=== PATIENT | male | born 1965 | race Caucasian/White ===

== ENCOUNTER 2016-11-20 11:35 | Inpatient (IN) | payer MEDICAID ==
[~2016-11-20] VITALS: Ht 177.8 cm; Wt 93.4 kg
[2016-11-20 11:49] VITALS: BP 144/108; PULSE 76; RESP 16; TEMP 98; O2SAT 96
--- NOTE | 2016-11-20 11:55 | NUR ---
C/O 05/21 RLQ abd pain, mild nausea, had some diarrhea S/T laxative use, now has formed stool. Patient to ER bed 1 to gown for evaluation. Side rails up. Report given to Damon GREENBERG.
--- NOTE | 2016-11-20 12:02 | NUR ---
ER Dr. Yates at bedside examining patient.
[2016-11-20] MEDS ORDERED: NACL 0.9% 1,000 ML IV ONE (12:07)
--- NOTE | 2016-11-20 12:10 | NUR ---
Pt brought by self, A&Ox4, pt c/o RLQ abd pain 05/21, denies vomiting, afebrile, skin pink and warm,c ap refill <3, VSS.
[2016-11-20] MEDS ORDERED: MORPHINE 4 MG/ML INJ. SYRINGE IM ONE (12:15)
[2016-11-20] MEDS ORDERED: ONDANSETRON HCL 4 MG/2 ML VIAL IVP ONE (12:15)
[2016-11-20 12:29] LABS: BASOPHILS # (AUTO) 0.1 K/uL (0.0-0.2); EOSINOPHILS # (AUTO) 0.5 K/uL (0.0-0.4); HEMATOCRIT 44.8 % (36-54); HEMOGLOBIN 14.7 g/dL (14.0-18.0); LYMPHOCYTES # (AUTO) 2.3 K/uL (1.0-5.5); MEAN CORPUSCULAR HEMOGLOBIN 31 pg (27-31); MEAN CORPUSCULAR HGB CONC 33 % (32-36); MEAN CORPUSCULAR VOLUME 94 fL (79.0-98.0); MONOCYTES # (AUTO) 0.7 K/uL (0.0-1.0); MONOCYTES % (AUTO) 8.7 % (1.7-9.3); NEUTROPHILS # (AUTO) 4.4 K/uL (1.8-7.7); NEUTROPHILS % (AUTO) 55.3 % (40.0-70.0); PLATELET COUNT (AUTO) 256 K/uL (130-430); RED BLOOD CELL COUNT(AUTO) 4.79 MIL/uL (4.2-6.2); RED CELL DISTRIBUTION WIDTH 11.8 % (9.0-15.0)
[2016-11-20 12:32] LABS: BILIRUBIN,URINE NEGATIVE (NEGATIVE); BLOOD, URINE 2+ (NEGATIVE); CLARITY/URINE CLEAR (CLEAR); COLOR,URINE YELLOW (YELLOW); GLUCOSE,URINE NEGATIVE (NEGATIVE); KETONES,URINE NEGATIVE (NEGATIVE); LEUKOCYTE ESTERASE ,URINE NEGATIVE (NEGATIVE); NITRITE, URINE NEGATIVE (NEGATIVE); PROTEIN URINE NEGATIVE (NEGATIVE); UROBILINOGEN,URINE 0.2 (0.2-1.0)
[2016-11-20 12:50] LABS: PROTHROMBIN TIME 11.2 SECS (9.5-12.5)
[2016-11-20 12:51] LABS: CALCIUM 9.2 mg/dL (8.4-11.0); CREATININE 1.18 mg/dL (0.55-1.30); POTASSIUM 4.2 mmol/L (3.5-5.1)
[2016-11-20 12:54] LABS: BACTERIA,URINE FEW /HPF (None Seen); MUCUS,URINE 2+ /LPF (None Seen); WBC,URINE 0-3 /HPF (0-3)
[2016-11-20 12:55] LABS: ALBUMIN 4.2 g/dL (3.4-4.8); TOTAL BILIRUBIN 0.4 mg/dL (0.0-1.0); TOTAL PROTEIN, SERUM 7.7 g/dL (6.4-8.3)
[2016-11-20] MEDS ORDERED: KETOROLAC TROMETHAMINE 30 MG VIAL IVP ONE (13:15)
[2016-11-20] MEDS ORDERED: HYDROmorphone 1 MG INJ. 1 MG/ML AMPUL IVP ONE ×2 (13:30→14:45)
--- NOTE | 2016-11-20 13:39 | NUR ---
Medicated with Dilaudid 1mg IVP per Dr. Yates's order for 06/21 right flank pain on cardiac/SaO2 monitor with high alarms, teach back fall precautions provided, bed low brake on primary nurse notified
--- NOTE | 2016-11-20 13:50 | NUR ---
Patient out to radiology.
--- NOTE | 2016-11-20 13:51 | NUR ---
ADMISSION: The patient, LOLIS MENDOZA, 50 y/o, M admitted by , was given written information regarding hospital policies, unit procedures and contact persons.
--- NOTE | 2016-11-20 13:57 | NUR ---
Patient will be admitted to care of Dr Morris . Admitted to Medsurg unit. Will go to room 126B. . Summary report printed. Report given to Leonora Villarreal .
[2016-11-20 13:59] VITALS: BP 148/78; PULSE 62; RESP 17; TEMP 97.8; O2SAT 98
[2016-11-20] MEDS ORDERED: FLU VACC QS 2016-17(36MOS+)/PF 0.5 ML/SYR SYRINGE I.M. PRN ×2 (14:15→14:30)
--- NOTE | 2016-11-20 14:30 | NUR ---
DR ZEENAT LAGOS
--- NOTE | 2016-11-20 14:45 | NUR ---
DR EPPERSON RETURNED CALL, MADE AWARE OF PATIENTS PAIN 07/21. NEW ORDER RECEIVED FOR DILAUDID 1MG IVP ONE TIME DOSE. DR EPPERSON SAID SHE WOULD BE MAKING ROUNDS SOON.
--- NOTE | 2016-11-20 14:46 | NUR ---
CALLED ATTENDING MD DR EPPERSON RE: PAIN MEDS. SPOKE TO MONICA
--- NOTE | 2016-11-20 14:46 | NUR ---
CALLED UROLOGY CONSULT TO Sarina COWAN RE: HYDRONEPHROSIS. SPOKE TO RAJESH
[2016-11-20] MEDS ORDERED: ACETAMINOPHEN 325 MG TABLET PO PRN (17:30)
[2016-11-20] MEDS ORDERED: FAMOTIDINE 20 MG TABLET PO ONE (17:30)
--- NOTE | 2016-11-20 17:30 | NUR ---
DR EPPERSON AT BEDSIDE
[2016-11-20] MEDS: HYDROmorphone 2 MG/ML VIAL IVP PRN ×2 (17:38→21:23)
--- NOTE | 2016-11-20 18:30 | NUR ---
CLOSING NOTE PT SITTING IN BED, RESTING, STATES PAIN IS TOLERABLE AT THIS TIME. SAFETY MEASURES IN PLACE THROUGH SHIFT, BED IN LOW POSITION, CALL LIGHT WITHIN REACH, WILL GIVE REPORT TO ONCOMING SHIFT.
[2016-11-20 19:35] VITALS: BP 150/97; PULSE 59; RESP 18; TEMP 96.2; O2SAT 95
--- NOTE | 2016-11-20 19:35 | NUR ---
PM ASSESSMENT PT. A/OX4, VITAL SIGNS STABLE, NO DISTRESS NOTED, DENIES PAIN AT THIS TIME, UPDATED WITH PLAN OF CARE, ENCOURAGED PT. TO USE CALL LIGHT FOR ASSISTANCE, CALL LIGHT WITHIN REACH, WILL CONTINUE TO MONITOR.
[2016-11-20] MEDS: POTASSIUM CHLORIDE 10 MEQ in D5/0.45 NS 1,000 ML IV SCH (21:22)
[2016-11-20] MEDS: ONDANSETRON HCL 4 MG/2 ML VIAL IVP PRN (21:23)
--- NOTE | 2016-11-20 21:23 | NUR ---
PAIN PT. C/O SEVERE PAIN RATED "7/10 TO R. LOWER ABDOMEN", DILAUDID 2MG IVP GIVEN ORDERED. PT. ALSO REPORTED FEELING NAUSEA, ZOFRAN 4 MG IVP GIVEN ORDERED. CALL LIGHT WITHIN REACH, WILL CONTINUE TO MONITOR.
--- NOTE | 2016-11-20 23:30 | NUR ---
RN ROUNDS PT. RESTING QUIETLY, VITAL SIGNS STABLE, NO DISTRESS NOTED, DENIES PAIN, CALL LIGHT WITHIN REACH, WILL CONTINUE TO MONITOR.
[2016-11-21] VITALS (8 sets, daily range): BP systolic 129–153; BP diastolic 76–95; PULSE 60–92; RESP 16–20; TEMP 96.3–98.6; O2SAT 90–97
[2016-11-21] MEDS: HYDROmorphone 2 MG/ML VIAL IVP PRN ×6 (01:24→23:04)
--- NOTE | 2016-11-21 01:24 | NUR ---
PAIN PT. C/O SEVERE PAIN RATED "7/10 TO R. LOWER ABDOMEN", DILAUDID 2MG IVP GIVEN ORDERED, VITAL SIGNS STABLE, NO DISTRESS NOTED, CALL LIGHT WITHIN REACH, WILL CONTINUE TO MONITOR.
--- NOTE | 2016-11-21 03:22 | NUR ---
RN ROUNDS PT. RESTING QUIETLY, VITAL SIGNS STABLE, NO DISTRESS NOTED, DENIES PAIN, CALL LIGHT WITHIN REACH, WILL CONTINUE TO MONITOR.
[2016-11-21] MEDS: ONDANSETRON HCL 4 MG/2 ML VIAL IVP PRN ×2 (05:33→23:03)
[2016-11-21] MEDS: POTASSIUM CHLORIDE 10 MEQ in D5/0.45 NS 1,000 ML IV SCH ×2 (05:34→22:00)
--- NOTE | 2016-11-21 05:34 | NUR ---
PAIN PT. C/O SEVERE PAIN TO RIGHT LOWER ABDOMEN, DILAUDID 2MG IVP GIVEN ORDERED. VITAL SIGNS STABLE, NO DISTRESS NOTED, PT. C/O SWEATING, PT. IS AFEBRILE, TEMP IS 96.9, ICE PACKS AND COOL WASH CLOTHS PROVIDED, WILL CONTINUE TO MONITOR.
--- NOTE | 2016-11-21 06:26 | NUR ---
CLOSING NOTES PT. RESTING QUIETLY, VITAL SIGNS STABLE, NO DISTRESS NOTED, DENIES PAIN, DENIES NAUSEA. ALL ANTICIPATED NEEDS MET.
[2016-11-21 06:40] LABS: BASOPHILS # (AUTO) 0.1 K/uL (0.0-0.2); BASOPHILS % (AUTO) 0.7 % (0.0-2.0); EOSINOPHILS # (AUTO) 0.4 K/uL (0.0-0.4); EOSINOPHILS % (AUTO) 4.8 % (0.0-4.0); HEMATOCRIT 41.1 % (36-54); HEMOGLOBIN 13.8 g/dL (14.0-18.0); LYMPHOCYTES # (AUTO) 2.8 K/uL (1.0-5.5); LYMPHOCYTES % (AUTO) 31.1 % (20.5-51.5); MEAN CORPUSCULAR HEMOGLOBIN 32 pg (27-31); MEAN CORPUSCULAR HGB CONC 34 % (32-36); MEAN CORPUSCULAR VOLUME 94 fL (79.0-98.0); MONOCYTES # (AUTO) 0.9 K/uL (0.0-1.0); MONOCYTES % (AUTO) 10.6 % (1.7-9.3); NEUTROPHILS # (AUTO) 4.7 K/uL (1.8-7.7); NEUTROPHILS % (AUTO) 52.8 % (40.0-70.0); PLATELET COUNT (AUTO) 230 K/uL (130-430); RED BLOOD CELL COUNT(AUTO) 4.38 MIL/uL (4.2-6.2); RED CELL DISTRIBUTION WIDTH 12.1 % (9.0-15.0); WHITE BLOOD COUNT (AUTO) 8.9 K/uL (4.8-10.8)
[2016-11-21 07:06] LABS: ALBUMIN 3.9 g/dL (3.4-4.8); CALCIUM 8.6 mg/dL (8.4-11.0); CREATININE 1.15 mg/dL (0.55-1.30); POTASSIUM 3.7 mmol/L (3.5-5.1); TOTAL BILIRUBIN 0.6 mg/dL (0.0-1.0); TOTAL PROTEIN, SERUM 7.1 g/dL (6.4-8.3)
--- NOTE | 2016-11-21 08:00 | NUR ---
INITIAL NOTE PT AWAKE, ALERT AND ORIENTED X4, VSS, NO DISTRESS NOTED, STATES PAIN IS TOLERABLE AT THIS TIME, MUTUAL GOAL FOR TODAY IF PAIN MANAGEMENT, PT REORIENTED TO USE OF CALL LIGHT AND IT IS PLACED WITHIN REACH, SAFETY MEASURES IN PLACE, BED IN LOW POSITION, WILL FOLLOW UP.
[2016-11-21] MEDS: FAMOTIDINE 20 MG TABLET PO SCH (09:25)
--- NOTE | 2016-11-21 10:00 | NUR ---
ROUNDS PT SITTING IN BED, FAMILY AT BEDSIDE, NO S/S OF DISTRESS NOTED, NEEDS ATTENDED TO
--- NOTE | 2016-11-21 12:00 | NUR ---
DR ROSE AT BEDSIDE, PROCEDURE CHANGED TO CYSTOSCOPY WITH BILATERAL URETERAL STENT PLACEMENT, CONSENT SIGNED.
--- NOTE | 2016-11-21 12:17 | NUR ---
PATIENT PICKED UP FOR PROCEDURE
[2016-11-21] MEDS ORDERED: WATER FOR IRRIGATION,STERILE 1,000 ML IRRIG.SOLN IR ONE (12:26)
[2016-11-21] MEDS ORDERED: MIDAZOLAM HCL 5 MG/5 ML VIAL IVP ONE (12:26)
[2016-11-21] MEDS ORDERED: ISOVUE-300 (IOPAMIDOL) 100 ML INFUS..BTL IV ONE (12:26)
[2016-11-21] MEDS ORDERED: ONDANSETRON HCL 4 MG/2 ML VIAL IVP ONE (12:26)
[2016-11-21] MEDS ORDERED: KETOROLAC TROMETHAMINE 30 MG VIAL IVP ONE (12:26)
[2016-11-21] MEDS ORDERED: NS 100 ML BAG IV ONE (12:26)
[2016-11-21] MEDS ORDERED: cefTRIAXone 1 GM VIAL IV ONE (12:26)
[2016-11-21] MEDS ORDERED: PROPOFOL 200MG/ 20ML VIAL (DIPRIVAN) IV ONE (12:26)
[2016-11-21] MEDS ORDERED: SEVOFLURANE 15 MIN GAS INH ONE (12:26)
[2016-11-21] MEDS ORDERED: fentaNYL CITRATE/PF 100 MCG/2 ML AMP IVP ONE (12:26)
[2016-11-21] MEDS ORDERED: METOPROLOL TARTRATE 5 MG/5 ML VIAL IVP ONE (12:26)
[2016-11-21] MEDS ORDERED: IOHEXOL 50 ML IV ONE (12:31)
[2016-11-21] MEDS ORDERED: LR 1,000 ML IV SCH (12:53)
[2016-11-21] MEDS ORDERED: HYDROmorphone 1 MG INJ. 1 MG/ML AMPUL IVP PRN (13:00)
[2016-11-21] MEDS ORDERED: MEPERIDINE HCL/PF 25 MG/ML DISP.SYRIN IVP PRN ×2 (13:00)
[2016-11-21] MEDS ORDERED: ePHEDrine sulfate 50 MG/ML VIAL IVP PRN (13:00)
[2016-11-21] MEDS ORDERED: KETOROLAC TROMETHAMINE 30 MG VIAL IVP PRN (13:00)
[2016-11-21] MEDS ORDERED: ONDANSETRON HCL 4 MG/2 ML VIAL IVP PRN (13:00)
[2016-11-21] MEDS ORDERED: HYDROmorphone 2 MG/ML VIAL IVP PRN ×2 (13:00)
[2016-11-21] MEDS ORDERED: HYDROmorphone 1 MG INJ. 1 MG/ML AMPUL ONE (14:07)
[2016-11-21] MEDS ORDERED: ONDANSETRON HCL 4 MG/2 ML VIAL ONE (14:29)
--- NOTE | 2016-11-21 14:45 | NUR ---
Pt returned from procedure, awake and alert, complains of pain 05/21, VSS, no s/s of distress at this time, safety measures in place, call light within reach, will follow up
--- NOTE | 2016-11-21 17:00 | NUR ---
ROUNDS PT SITTING IN BED, STATES HE IS FEELING LESS DISCOMFORT, VSS, NEEDS ATTENDED TO, FAMILY AT BEDSIDE, SAFETY MEASURES JN PLACE, CALL LIGHT WITHIN REACH, WILL FOLLOW UP.
--- NOTE | 2016-11-21 18:30 | NUR ---
CLOSING NOTE PT SITTING IN BED, COMPLAINT OF PAIN, WILL ADMINISTER PRN PAIN MEDICATION, OTHERWISE VSS, URINAL AT BEDSIDE WITH BLOOD TINGED URINE, IV INFUSING, SCDS IN PLACE, NEEDS ATTENDED TO THROUGH SHIFT, SAFETY MEASURES IN PLACE, BED IN LOW POSITION, WILL GIVE REPORT TO FOLLOWING SHIFT.
--- NOTE | 2016-11-21 19:45 | NUR ---
PM ASSESSMENT PT. A/OX4, VITAL SIGNS STABLE, NO DISTRESS NOTED, DENIES PAIN, UPDATED WITH PLAN OF CARE, CALL LIGHT WITHIN REACH.
--- NOTE | 2016-11-21 21:46 | NUR ---
PAGED DR. EPPERSON PT. REQUESTING A SLEEPING PILL FOR TONIGHT, PAGED DR. EPPERSON, AWAITING CALL BACK.
--- NOTE | 2016-11-21 22:34 | NUR ---
Paged Dr Morris, ken Long.
[2016-11-21] MEDS ORDERED: ZOLPIDEM TARTRATE 5 MG TABLET PO PRN (22:45)
[2016-11-22 00:37] VITALS: BP 126/81; PULSE 70; RESP 18; TEMP 98.4; O2SAT 93
[2016-11-22] MEDS: POTASSIUM CHLORIDE 10 MEQ in D5/0.45 NS 1,000 ML IV SCH (01:59)
--- NOTE | 2016-11-22 02:00 | NUR ---
ENDORSED CARE TO DIONICIO HIGUERA
--- NOTE | 2016-11-22 02:01 | NUR ---
initial nursing notes: Received report from DIONICIO Goodwin. Patient is awake. Patient has urinal at the bedside.
[2016-11-22] MEDS: HYDROmorphone 2 MG/ML VIAL IVP PRN ×3 (03:23→14:14)
--- NOTE | 2016-11-22 04:00 | NUR ---
nursing rounds: Patient is asleep. Patient still has a pinkish colored urine output.
[2016-11-22 04:32] VITALS: BP 131/78; PULSE 77; RESP 18; TEMP 98; O2SAT 92
--- NOTE | 2016-11-22 06:00 | NUR ---
nursing rounds: Patient is sleeping in bed. Patient has no respiratory distress.
[2016-11-22 06:53] LABS: CALCIUM 9.1 mg/dL (8.4-11.0); CREATININE 1.15 mg/dL (0.55-1.30); POTASSIUM 4.2 mmol/L (3.5-5.1)
--- NOTE | 2016-11-22 07:30 | NUR ---
rn notes: patient is aaox 4. afebrile. vss stable. lungs bilaterally clear. abdomen soft and non distended. has iv access on the rt ac. #20 with iv fluids of D5ns _10 kcl meq in 100cc/hr infusing. able to void in the urinal pinkish clear urine. call lights within reach. safety measures maintained. linformed to call for assistance.
--- NOTE | 2016-11-22 07:35 | NUR ---
closing nursing notes: Patient is awake, alert and oriented X 4. Patient denies of having pain. Patient is in no acute respiratory distress. IV fluid infusing on the right AC. Patient's urine output is now yellow in color. No episodes of fall and no injuries throughout the scene shifter. Provided nursing report to incoming morning shift nurse, DIONICIO Marshall, at patient's bedside.
[2016-11-22 08:01] VITALS: BP 144/95; PULSE 78; RESP 18; TEMP 98.2; O2SAT 98
[2016-11-22] MEDS: FAMOTIDINE 20 MG TABLET PO SCH (09:27)
[2016-11-22 11:26] VITALS: BP 126/69; PULSE 79; RESP 16; TEMP 99; O2SAT 96
[2016-11-22 13:27] VITALS: BP 126/69; PULSE 79; RESP 16; TEMP 99; O2SAT 96
--- NOTE | 2016-11-22 13:57 | NUR ---
dr valdez called for discharge today with prescription
--- NOTE | 2016-11-22 14:00 | NUR ---
discharge instructions given to the patient and mom at the bedside. awaiting for the pain medication.
[2016-11-22] MEDS ORDERED: WATER FOR IRRIGATION,STERILE 3,000 ML IRRIG.SOLN IR ONE (14:44)
--- NOTE | 2016-11-22 14:45 | NUR ---
patient left in stable condition. mom is with the patient. prescription for norco po given at this time. scdh id band removed.
[2016-11-22] MEDS ORDERED: HYDR-1189 PO (16:11)
== END 2016-11-22 14:45 | disposition home or self-care (01) | DRG 465 ==
LOC: SED 11:35 → SMU 13:33 → SED 13:50 → SMU 13:50
PROVIDERS: ADMIT Internal Medicine; ATTEND Internal Medicine
PROC: BT1D1ZZ Fluoroscopy of Right Kidney, Ureter and Bladder using Low Osmolar Contrast (ICD-10-PCS; 2016-11-21)
PROC: 0TF68ZZ Fragmentation in Right Ureter, Via Natural or Artificial Opening Endoscopic (ICD-10-PCS; 2016-11-21)
PROC: 0T788DZ Dilation of Bilateral Ureters with Intraluminal Device, Via Natural or Artificial Opening Endoscopic (ICD-10-PCS; principal; 2016-11-21 12:00)
DX: N13.2 Hydronephrosis with renal and ureteral calculous obstruction (principal); F17.210 Nicotine dependence, cigarettes, uncomplicated; Z90.49 Acquired absence of other specified parts of digestive tract; Z98.890 Other specified postprocedural states
CPT/HCPCS: 36415; 76000; 80048; 80053; 81000-TC; 83690-TC; 85025; 85610-TC; 85730-TC; 87040-TC; 87086; 96361; 96374; 96375; 99285; C1758; C1769; C2625; J0696; J1170; J1885; J2250; J2270; J2405; J2704; J3010; J3480; J3490; Q2037; Q9967

== ENCOUNTER 2016-11-25 14:17 | Emergency (ER) | payer MEDICAID ==
[~2016-11-25] VITALS: Ht 177.8 cm; Wt 99.8 kg
[~2016-11-25 14:17] MED LIST: HYDR-1189 PO
[2016-11-25 14:28] VITALS: BP 116/39; PULSE 98; RESP 16; TEMP 97.2; O2SAT 98
--- NOTE | 2016-11-25 14:33 | NUR ---
Patient to ER bed 7 to gown for evaluation. Side rails up. Report given to Vanessa GREENBERG.
--- NOTE | 2016-11-25 14:40 | NUR ---
Dr Johnson at bedside examining patient
--- NOTE | 2016-11-25 14:42 | NUR ---
Pt brought by self, A&OX4, pt c/o gerson 05/21 flank pain, Pt states he has Hx of kidney stones, recently had urethral stents placed, pt afebrile, ambulatory, cap refill <3, VSS..
[2016-11-25 14:58] LABS: BILIRUBIN,URINE NEGATIVE (NEGATIVE); BLOOD, URINE 3+ (NEGATIVE); CLARITY/URINE SL CLOUDY (CLEAR); COLOR,URINE BROWN (YELLOW); GLUCOSE,URINE NEGATIVE (NEGATIVE); KETONES,URINE NEGATIVE (NEGATIVE); LEUKOCYTE ESTERASE ,URINE 2+ (NEGATIVE); NITRITE, URINE NEGATIVE (NEGATIVE); PROTEIN URINE 2+ (NEGATIVE); UROBILINOGEN,URINE 0.2 (0.2-1.0)
[2016-11-25 15:25] LABS: BASOPHILS # (AUTO) 0.1 K/uL (0.0-0.2); BASOPHILS % (AUTO) 0.6 % (0.0-2.0); EOSINOPHILS # (AUTO) 0.7 K/uL (0.0-0.4); EOSINOPHILS % (AUTO) 6.6 % (0.0-4.0); HEMATOCRIT 47.5 % (36-54); HEMOGLOBIN 15.5 g/dL (14.0-18.0); LYMPHOCYTES # (AUTO) 2.3 K/uL (1.0-5.5); LYMPHOCYTES % (AUTO) 23.4 % (20.5-51.5); MEAN CORPUSCULAR HEMOGLOBIN 30 pg (27-31); MEAN CORPUSCULAR HGB CONC 33 % (32-36); MEAN CORPUSCULAR VOLUME 92 fL (79.0-98.0); MONOCYTES # (AUTO) 1.1 K/uL (0.0-1.0); MONOCYTES % (AUTO) 11.4 % (1.7-9.3); NEUTROPHILS # (AUTO) 5.8 K/uL (1.8-7.7); PLATELET COUNT (AUTO) 289 K/uL (130-430); RED BLOOD CELL COUNT(AUTO) 5.15 MIL/uL (4.2-6.2); RED CELL DISTRIBUTION WIDTH 11.9 % (9.0-15.0)
[2016-11-25] MEDS ORDERED: KETOROLAC TROMETHAMINE 30 MG VIAL IVP ONE (15:30)
[2016-11-25 15:31] LABS: CALCIUM 9.8 mg/dL (8.4-11.0); CREATININE 1.25 mg/dL (0.55-1.30); POTASSIUM 4.3 mmol/L (3.5-5.1)
[2016-11-25 15:36] LABS: ALBUMIN 4.2 g/dL (3.4-4.8); TOTAL BILIRUBIN 0.3 mg/dL (0.0-1.0); TOTAL PROTEIN, SERUM 8.2 g/dL (6.4-8.3)
[2016-11-25 15:50] LABS: PROTHROMBIN TIME 11.1 SECS (9.5-12.5)
[2016-11-25 15:56] LABS: BACTERIA,URINE MODERATE /HPF (None Seen); RBC,URINE >100 /HPF (0-3)
[2016-11-25 15:57] LABS: MUCUS,URINE 1+ /LPF (None Seen)
[2016-11-25] MEDS ORDERED: HYDROmorphone 1 MG INJ. 1 MG/ML AMPUL IVP ONE (16:30)
[2016-11-25] MEDS ORDERED: ONDANSETRON HCL 4 MG/2 ML VIAL IVP ONE (16:30)
[2016-11-25] MEDS ORDERED: CIPROFLOXACIN HCL 500 MG TABLET PO ONE (16:30)
--- NOTE | 2016-11-25 16:47 | NUR ---
Pt on stable condtion, A&Ox4, respirations even and unlabored
--- NOTE | 2016-11-25 17:04 | NUR ---
Patient given written and verbal discharge instructions and verbalizes understanding. ER MD discussed with patient the results and treatment provided. Given copies of tests performed in ER. Patient in stable condition. ID arm band removed. IV catheter removed intact and dressing applied, no active bleeding. Rx of Cipro, [place] given. Patient educated on pain management and to follow up with PMD. Pain Scale 1/10. Opportunity for questions provided and answered.
[2016-11-25 17:09] VITALS: BP 125/91; PULSE 79; RESP 16; TEMP 98.1; O2SAT 98
== END 2016-11-25 17:09 | disposition home or self-care (01) ==
LOC: SED 14:17
DX: N39.0 Urinary tract infection, site not specified (principal)
CPT/HCPCS: 36415; 71010; 74176; 80053; 81000; 83605; 83690; 85025; 85610; 87040; 87086; 93005; 96374; 96375; 99285; J1170; J1885; J2405

== ENCOUNTER 2016-12-11 15:14 | Emergency (ER) | payer MEDICAID ==
[~2016-12-11] VITALS: Ht 177.8 cm; Wt 101.6 kg
[2016-12-11 15:23] VITALS: BP 145/100; PULSE 89; RESP 16; TEMP 97.4; O2SAT 96
[2016-12-11 15:51] LABS: BILIRUBIN,URINE 1+ (NEGATIVE); BLOOD, URINE 3+ (NEGATIVE); CLARITY/URINE SL CLOUDY (CLEAR); COLOR,URINE BROWN (YELLOW); GLUCOSE,URINE NEGATIVE (NEGATIVE); KETONES,URINE NEGATIVE (NEGATIVE); LEUKOCYTE ESTERASE ,URINE TRACE (NEGATIVE); NITRITE, URINE NEGATIVE (NEGATIVE); PROTEIN URINE 2+ (NEGATIVE); UROBILINOGEN,URINE 0.2 (0.2-1.0)
[2016-12-11 15:58] LABS: BACTERIA,URINE RARE /HPF (None Seen); RBC,URINE >100 /HPF (0-3); WBC,URINE 0-3 /HPF (0-3)
[2016-12-11 16:01] LABS: BARBITURATE, URINE NEGATIVE (NEG <=200); BENZODIAZEPINE, URINE POSITIVE (NEG <=150); CANNABINOID, URINE NEGATIVE (NEG <=50); COCAINE, URINE NEGATIVE (NEG <=150); METHAMPHETAMINES SCREEN,URINE NEGATIVE (NEG <=500); OPIATE, URINE POSITIVE (NEG <=100); PHENCYCLIDINE SCREEN,URINE NEGATIVE (NEG <=25); UR TRICYCLIC ANTIDEPRESSANTS NEGATIVE (NEG <=300); URINE AMPHETAMINE NEGATIVE (NEG <=500); URINE METHADONE NEGATIVE (NEG <=200); URINE OXYCODONE SCREEN NEGATIVE (NEG <=100); URINE PROPOXYPHENE SCREEN NEGATIVE (NEG <=300)
--- NOTE | 2016-12-11 17:06 | NUR ---
Pt ambulatory to bed 7
[2016-12-11] MEDS ORDERED: KETOROLAC TROMETHAMINE 30 MG VIAL IVP ONE (17:15)
--- NOTE | 2016-12-11 17:16 | NUR ---
Dr. Johnson at bedside for evaluation
--- NOTE | 2016-12-11 17:26 | NUR ---
Pt states the only medication that works for his pain is Dilaudid. Dr. Johnson notified. Medicated with toradol IVP. Will continue to monitor
[2016-12-11] MEDS ORDERED: ONDANSETRON HCL 4 MG/2 ML VIAL IVP ONE (17:30)
[2016-12-11] MEDS ORDERED: HYDROmorphone 1 MG INJ. 1 MG/ML AMPUL IVP ONE (17:30)
--- NOTE | 2016-12-11 17:45 | NUR ---
Medicated per MD orders.
--- NOTE | 2016-12-11 18:05 | NUR ---
Pt requesting to be admitted. Dr. Johnson spoke with Dr. Mcnamara (urology) regarding admission. Dr. Mcnamara unable to admit pt at this time. Dr. Johnson at bedside speaking with pt regarding follow up.
[2016-12-11 18:28] VITALS: BP 147/85; PULSE 82; RESP 16; TEMP 97.4; O2SAT 96
--- NOTE | 2016-12-11 18:28 | NUR ---
Patient given written and verbal discharge instructions and verbalizes understanding. ER MD discussed with patient the results and treatment provided. Given copies of tests performed in ER. Patient in stable condition. ID arm band removed. IV catheter removed intact and dressing applied, no active bleeding. No Rx given. Patient educated on pain management and to follow up with PMD. Pain Scale 2/10. Opportunity for questions provided and answered.
== END 2016-12-11 18:28 | disposition home or self-care (01) ==
LOC: SED 15:14
DX: R31.9 Hematuria, unspecified (principal); R10.9 Unspecified abdominal pain; Z87.442 Personal history of urinary calculi
CPT/HCPCS: 80307; 81000; 96374; 96375; 99284; J1170; J1885; J2405

== ENCOUNTER 2016-12-16 22:09 | Emergency (ER) | payer MEDICAID ==
[~2016-12-16] VITALS: Ht 177.8 cm; Wt 101.6 kg
--- NOTE | 2016-12-16 22:11 | NUR ---
Patient to ER bed 6 to gown for evaluation. Side rails up. Report given to Beth GREENBERG.
[2016-12-16 22:18] VITALS: BP 141/98; PULSE 83; RESP 18; TEMP 97.2; O2SAT 100
--- NOTE | 2016-12-16 22:20 | NUR ---
Patient to ER C/O abdominal pressure, distension, and pain 10/10. Patient states that he has extensive history for renal calculi with stents. States mild diarrhea for the past couple days, nausea &vomiting. AAOc4, unlabored breathing, no signs of acute distress.
[2016-12-16] MEDS ORDERED: NACL 0.9% 1,000 ML IV ONE (22:56)
[2016-12-16] MEDS ORDERED: KETOROLAC TROMETHAMINE 30 MG VIAL IVP ONE (23:00)
[2016-12-16] MEDS ORDERED: HYDROmorphone 1 MG INJ. 1 MG/ML AMPUL IVP ONE (23:00)
[2016-12-16] MEDS ORDERED: DIPHENHYDRAMINE INJ 50 MG/ML VIAL IVP ONE (23:00)
[2016-12-16] MEDS ORDERED: ONDANSETRON HCL 4 MG/2 ML VIAL IVP ONE (23:00)
--- NOTE | 2016-12-16 23:00 | NUR ---
# 20 gauge angiocath placed to right hand. Use of asceptic technique. Opsite placed over site. Blood return noted. Blood for lab drawn from site. Flushed with 10 cc of normal saline. No evidence of infiltration noted. Patient tolerated well.
[2016-12-16 23:43] LABS: BASOPHILS % (AUTO) 0.5 % (0.0-2.0); EOSINOPHILS # (AUTO) 0.4 K/uL (0.0-0.4); EOSINOPHILS % (AUTO) 5.1 % (0.0-4.0); HEMATOCRIT 36.8 % (36-54); HEMOGLOBIN 12.4 g/dL (14.0-18.0); LYMPHOCYTES # (AUTO) 2.6 K/uL (1.0-5.5); LYMPHOCYTES % (AUTO) 30.1 % (20.5-51.5); MEAN CORPUSCULAR HEMOGLOBIN 31 pg (27-31); MEAN CORPUSCULAR HGB CONC 34 % (32-36); MEAN CORPUSCULAR VOLUME 92 fL (79.0-98.0); MONOCYTES # (AUTO) 0.7 K/uL (0.0-1.0); MONOCYTES % (AUTO) 7.9 % (1.7-9.3); NEUTROPHILS # (AUTO) 5.1 K/uL (1.8-7.7); NEUTROPHILS % (AUTO) 56.4 % (40.0-70.0); PLATELET COUNT (AUTO) 214 K/uL (130-430); RED BLOOD CELL COUNT(AUTO) 3.98 MIL/uL (4.2-6.2); WHITE BLOOD COUNT (AUTO) 8.8 K/uL (4.8-10.8)
--- NOTE | 2016-12-16 23:44 | NUR ---
Patient off the unit via gurney for CT
[2016-12-16 23:48] LABS: BILIRUBIN,URINE NEGATIVE (NEGATIVE); BLOOD, URINE 2+ (NEGATIVE); COLOR,URINE YELLOW (YELLOW); GLUCOSE,URINE NEGATIVE (NEGATIVE); KETONES,URINE NEGATIVE (NEGATIVE); LEUKOCYTE ESTERASE ,URINE NEGATIVE (NEGATIVE); NITRITE, URINE NEGATIVE (NEGATIVE); PH,URINE 7.5 (5.0-8.0); PROTEIN URINE NEGATIVE (NEGATIVE); UROBILINOGEN,URINE 0.2 (0.2-1.0)
[2016-12-16 23:48] LABS: CALCIUM 8.2 mg/dL (8.4-11.0); CREATININE 1.14 mg/dL (0.55-1.30); POTASSIUM 4.1 mmol/L (3.5-5.1)
[2016-12-16 23:52] LABS: ALBUMIN 3.1 g/dL (3.4-4.8); PROTHROMBIN TIME 10.8 SECS (9.5-12.5); TOTAL BILIRUBIN 0.2 mg/dL (0.0-1.0); TOTAL PROTEIN, SERUM 6.1 g/dL (6.4-8.3)
[2016-12-16 23:58] LABS: CLARITY/URINE HAZY (CLEAR)
[2016-12-17] LABS: BACTERIA,URINE FEW /HPF (None Seen); MUCUS,URINE None Seen /LPF (None Seen); RBC,URINE 50-80 /HPF (0-3); WBC,URINE 0-3 /HPF (0-3)
--- NOTE | 2016-12-17 00:01 | NUR ---
Patient back from CT via [facility]
[2016-12-17 01:14] VITALS: BP 124/83; PULSE 74; RESP 18; TEMP 98.1
--- NOTE | 2016-12-17 01:14 | NUR ---
Patient given written and verbal discharge instructions and verbalizes understanding. ER MD Deng discussed with patient the results and treatment provided. Patient in stable condition. ID arm band removed. IV catheter removed intact and dressing applied, no active bleeding. Rx of zofran given. Patient educated on pain management and to follow up with PMD. Pain Scale 0/10. Opportunity for questions provided and answered.
[2016-12-17] MEDS ORDERED: DIPHENHYDRAMINE INJ 50 MG/ML VIAL IVP ONE (01:15)
[2017-01-02 14:27] VITALS: O2SAT 100
== END 2016-12-17 01:14 | disposition home or self-care (01) ==
LOC: SED 22:09
DX: R10.9 Unspecified abdominal pain (principal); R14.0 Abdominal distension (gaseous); R19.7 Diarrhea, unspecified; R11.2 Nausea with vomiting, unspecified
CPT/HCPCS: 36415; 74176; 80053; 81000; 83690; 85025; 85610; 85730; 96361; 96374; 96375; 96376; 99285; J1170; J1200 ×2; J1885; J2405; J7030

== ENCOUNTER 2016-12-26 09:37 | Inpatient (IN) | payer MEDICAID ==
[~2016-12-26] VITALS: Ht 177.8 cm; Wt 101.6 kg
--- NOTE | 2016-12-26 09:38 | NUR ---
Arrived via [facility] ambulance after being found difficult to arouse by mother. Patient was given Narcan 2mg IM. Patient now admits to combining Percocet with Voodka. States that he is having pain and needs additional pain medication. Discussed with Dr. Shoemaker. Placed in room 6. Placed on radiographer cardiac catheterization, blood pressure machine and pulse oximeter. To gown for exam. Side rails up. Report given to Bruce GREENBERG.
--- NOTE | 2016-12-26 09:38 | NUR ---
Pt report received from DIONICIO Brown.
[2016-12-26 09:40] VITALS: BP 108/69; PULSE 97; RESP 16; TEMP 96.4; O2SAT 92
--- NOTE | 2016-12-26 09:40 | NUR ---
Dr. Shoemaker at bedside to assess pt.
[2016-12-26] MEDS ORDERED: NACL 0.9% 1,000 ML IV ONE ×2 (09:45→13:30)
--- NOTE | 2016-12-26 09:45 | NUR ---
# 20 gauge angiocath placed to RAC. Use of asceptic technique. Opsite placed over site. Blood return noted. Blood for lab drawn from site. Flushed with 10 cc of normal saline. No evidence of infiltration noted. Patient tolerated well.
[2016-12-26 10:07] LABS: CREATININE 1.93 mg/dL (0.55-1.30); POTASSIUM 4.9 mmol/L (3.5-5.1)
[2016-12-26 10:08] LABS: BASOPHILS # (AUTO) 0.1 K/uL (0.0-0.2); BASOPHILS % (AUTO) 0.6 % (0.0-2.0); EOSINOPHILS # (AUTO) 0.2 K/uL (0.0-0.4); EOSINOPHILS % (AUTO) 1.9 % (0.0-4.0); HEMATOCRIT 39.6 % (36-54); HEMOGLOBIN 13.3 g/dL (14.0-18.0); LYMPHOCYTES # (AUTO) 1.5 K/uL (1.0-5.5); LYMPHOCYTES % (AUTO) 12.7 % (20.5-51.5); MEAN CORPUSCULAR HEMOGLOBIN 31 pg (27-31); MEAN CORPUSCULAR HGB CONC 34 % (32-36); MEAN CORPUSCULAR VOLUME 93 fL (79.0-98.0); MONOCYTES # (AUTO) 0.6 K/uL (0.0-1.0); NEUTROPHILS # (AUTO) 9.3 K/uL (1.8-7.7); NEUTROPHILS % (AUTO) 79.8 % (40.0-70.0); PLATELET COUNT (AUTO) 244 K/uL (130-430); RED BLOOD CELL COUNT(AUTO) 4.28 MIL/uL (4.2-6.2); RED CELL DISTRIBUTION WIDTH 12.2 % (9.0-15.0); WHITE BLOOD COUNT (AUTO) 11.7 K/uL (4.8-10.8)
[2016-12-26 10:11] LABS: BILIRUBIN,URINE NEGATIVE (NEGATIVE); BLOOD, URINE 3+ (NEGATIVE); CLARITY/URINE CLOUDY (CLEAR); COLOR,URINE ORANGE (YELLOW); GLUCOSE,URINE NEGATIVE (NEGATIVE); KETONES,URINE NEGATIVE (NEGATIVE); LEUKOCYTE ESTERASE ,URINE TRACE (NEGATIVE); NITRITE, URINE NEGATIVE (NEGATIVE); PH,URINE 5.5 (5.0-8.0); PROTEIN URINE 3+ (NEGATIVE); UROBILINOGEN,URINE 0.2 (0.2-1.0)
[2016-12-26 10:11] LABS: ALBUMIN 3.4 g/dL (3.4-4.8); TOTAL BILIRUBIN 0.3 mg/dL (0.0-1.0); TOTAL PROTEIN, SERUM 6.8 g/dL (6.4-8.3)
[2016-12-26 10:23] LABS: BACTERIA,URINE FEW /HPF (None Seen); MUCUS,URINE 1+ /LPF (None Seen); RBC,URINE >100 /HPF (0-3)
--- NOTE | 2016-12-26 10:25 | NUR ---
Pt c/o severe abd/flank pain. Dr. Shoemaker notified and pt to be medicated.
[2016-12-26 10:27] LABS: BARBITURATE, URINE NEGATIVE (NEG <=200); METHAMPHETAMINES SCREEN,URINE NEGATIVE (NEG <=500); URINE AMPHETAMINE NEGATIVE (NEG <=500); URINE METHADONE NEGATIVE (NEG <=200)
[2016-12-26 10:28] LABS: BENZODIAZEPINE, URINE POSITIVE (NEG <=150); CANNABINOID, URINE NEGATIVE (NEG <=50); COCAINE, URINE NEGATIVE (NEG <=150); OPIATE, URINE POSITIVE (NEG <=100); PHENCYCLIDINE SCREEN,URINE NEGATIVE (NEG <=25); UR TRICYCLIC ANTIDEPRESSANTS POSITIVE (NEG <=300); URINE OXYCODONE SCREEN POSITIVE (NEG <=100); URINE PROPOXYPHENE SCREEN NEGATIVE (NEG <=300)
[2016-12-26] MEDS ORDERED: KETOROLAC TROMETHAMINE 30 MG VIAL IVP ONE (10:30)
[2016-12-26] MEDS ORDERED: cefTRIAXone 1 GM IVPB PREMIX 50 ML IV ONE (11:15)
[2016-12-26] MEDS ORDERED: D5NS 1,000 ML IV SCH (11:30)
--- NOTE | 2016-12-26 11:35 | NUR ---
Pt verbalizes improvement in pain at 10. No needs verbalized at this time. Family member at bedside.
--- NOTE | 2016-12-26 11:40 | NUR ---
Patient will be admitted to care of Dr. Michael. Admitted to Tele unit. Will go to room 135. Summary report printed. Bedside report given to DIONICIO Ziegler.
--- NOTE | 2016-12-26 11:58 | NUR ---
ADMIT NOTE Received pt from ER to the floor with a diagnosis of drug overdose. Admission process initiated. Patient oriented to pain management, safety and call light-teach back done.
[2016-12-26 12:03] VITALS: BP 118/65; PULSE 87; RESP 14; TEMP 98; O2SAT 94
--- NOTE | 2016-12-26 12:52 | NUR ---
Paged: Dr. Michael paged for pt c/o pain. Pt verbalizes understanding of need to call for assist prior to ambulating. Call light in reach. Bed alarm on. Continue to monitor.
[2016-12-26] MEDS ORDERED: MORPHINE 2 MG/ML INJ. SYRINGE IVP PRN (13:30)
[2016-12-26] MEDS: D5NS 1,000 ML IV SCH ×2 (13:30→22:24)
[2016-12-26] MEDS ORDERED: ACETAMINOPHEN 325 MG TABLET PO PRN (13:30)
--- NOTE | 2016-12-26 13:39 | NUR ---
CALLED SURGICAL CONSULT TO DR BRAGA, RE: ABD PAIN. CALLED HIM ON HIS CELL
--- NOTE | 2016-12-26 13:41 | NUR ---
Dr. Michael Here: Dr. Michael here to see patient. New orders noted for pain medication. Dr. Michael aware that pt states "Morphine does not work for me". Dr. Morrissey also called, report given to MD on patient, Dr. Morrissey aware of results of CT of abdomen/pelvis.
[2016-12-26] MEDS ORDERED: DIPHENHYDRAMINE INJ 50 MG/ML VIAL IVP PRN (13:45)
[2016-12-26] MEDS: ONDANSETRON HCL 4 MG/2 ML VIAL IVP PRN (14:01)
--- NOTE | 2016-12-26 15:06 | NUR ---
Rounds: Pt sitting semi-fowlers in bed. Pt c/o pain 10/ to lower back and abdomen. Dr. Michael has been previously paged. Awaiting call back at this time.
[2016-12-26] MEDS ORDERED: MORPHINE 4 MG/ML INJ. SYRINGE IVP PRN (15:15)
[2016-12-26 16:00] VITALS: BP 96/63; PULSE 76; RESP 21; TEMP 97.6; O2SAT 96
[2016-12-26] MEDS ORDERED: BANANA BAG 1 EA, FOLIC ACID 1 MG, THIAMINE HCL 100 MG, MAGNESIUM SULFATE 1 GM, MVI 10 M... IV SCH ×5 (17:00)
--- NOTE | 2016-12-26 17:42 | NUR ---
Dr. Michael Paged: Dr. Michael paged, aware that pt continues to complain of pain 10/ to abdomen and lower back and that "Morphine doesn't work for [him]". Pt continues to request Dilmagnus and aware. Dr. Michael states "Ok I'll enter the order".
[2016-12-26] MEDS ORDERED: HYDROmorphone 1 MG INJ. 1 MG/ML AMPUL IVP PRN (17:45)
[2016-12-26] MEDS: HYDROmorphone 2 MG/ML VIAL IVP PRN ×2 (17:58→22:15)
--- NOTE | 2016-12-26 18:55 | NUR ---
Closing Note: Pt sitting semi-fowlers in bed. No acute signs of distress noted. IV intact to RUE with no redness or swelling noted to site. Infusing banana bag and IV fluids well. Pt denies pain at this time. Bed alarm on. Pt verbalizes understanding of need to call for assist prior to ambulating. Call light in reach. Endorse plan of care to NOC RN.
--- NOTE | 2016-12-26 19:05 | NUR ---
OPENING NOTES PATIENT SITTING UP IN BED, ALERT AND ORIENTED X4, WATCHING TV AND CONVERSING WITH FIANCE AT BEDSIDE. . NO SIGNS OR SYMPTOMS OF DISTRESS NOTED. IV IS PATENT AND FLUIDS RUNNING, NO SIGNS OF INFILTRATION NOTED. PATIENT IN GOOD SPIRITS.
[2016-12-26 20:00] VITALS: BP 131/78; PULSE 73; RESP 20; TEMP 97.6; O2SAT 99
--- NOTE | 2016-12-26 21:00 | NUR ---
NOTES PATIENT STATES HIS PAIN IS A 6-7, AND IS INCREASING. PATIENT INFORMED THE PRN DOSE WOULD BE AVAILABLE AT 2200. PATIENT IS ALERT AND ORIENTED AND VERBALIZED UNDERSTANDING. BED IN THE LOWEST POSITION, BED ALARM ON, CALL LIGHT WITHIN REACH. FAMILY AT BEDSIDE.
[2016-12-26] MEDS ORDERED: MAGNESIUM CITRATE 300 ML ORAL SOLUTION PO ONE (21:15)
--- NOTE | 2016-12-26 23:00 | NUR ---
NOTES PATIENT STATES PAIN IS NOW BETWEEN 6-7. DR. BRAGA ORDERED REGULAR DIET. ACTIVE BOWEL SOUNDS. IV PATENT AND FLUIDS RUNNING. PATIENT SITTING UP, WATCHING TELEVISION. BED IN LOWEST POSITION, BED ALARM ON, CALL LIGHT WITHIN REACH.
[2016-12-26 23:25] VITALS: BP 149/86; PULSE 82; RESP 16; TEMP 97.4; O2SAT 92
--- NOTE | 2016-12-27 01:00 | NUR ---
NOTES PATIENT STATES HIS PAIN IS 9 ON NUMERIC SCALE. PATIENT INFORMED THAT HIS NEXT PRN DOSE WOULD NOT BE AVAILABLE UNTIL 0200. PATIENT VERBALIZED UNDERSTANDING. NO SIGNS OR SYMPTOMS OF DISTRESS NOTED. SEIZURE PRECAUTIONS IN PLACE, BED IN LOWEST POSITION, BED ALARM ON, AND CALL LIGHT WITHIN REACH.
[2016-12-27] MEDS: ONDANSETRON HCL 4 MG/2 ML VIAL IVP PRN ×3 (02:07→13:14)
[2016-12-27] MEDS: HYDROmorphone 2 MG/ML VIAL IVP PRN ×4 (02:08→13:59)
--- NOTE | 2016-12-27 03:00 | NUR ---
NOTES PATIENT IS RESTING COMFORTABLY WATCHING TELEVISION. BED IN LOWEST POSITION, BED ALARM ON,CALL LIGHT WITHIN REACH.
--- NOTE | 2016-12-27 06:48 | NUR ---
CLOSING NOTE PATIENT IS RESTING COMFORTABLY WATCHING TELEVISION. NO SIGNS OR SYMPTOMS OF DISTRESS NOTED. SEIZURE AND FALL PRECAUTIONS IN PLACE. IV PATENT, NO SIGNS OF INFILTRATION. BED IN LOWEST POSITION, BED ALARM ON, CALL LIGHT WITHIN REACH. WILL ENDORSE CARE TO DAY SHIFT NURSE.
[2016-12-27 06:54] VITALS: BP 144/80; PULSE 80; RESP 20; TEMP 97.4; O2SAT 98
--- NOTE | 2016-12-27 07:44 | NUR ---
AM Rounds: Pt sitting up in bed and sleeping. Breathing even and unlabored on 2L via NC. Pt denies pain. IV intact to RUE infusing fluids well. Call light in reach. Bed alarm on. Continue to monitor pt closely.
[2016-12-27 08:50] VITALS: BP 156/93; PULSE 85; RESP 15; TEMP 97.8; O2SAT 94
[2016-12-27] MEDS: D5NS 1,000 ML IV SCH (08:59)
[2016-12-27] MEDS: LORazepam 2 MG/ML VIAL IVP PRN ×2 (08:59→13:09)
--- NOTE | 2016-12-27 09:02 | NUR ---
RN Rounds: AM meds given per MD order for pt c/o anxiety. New bag of IV fluids hung. Pt tolerates well at this time via IV. Call light in reach. Pt is able to make needs known and verbalize understanding. No other needs noted. Bed alarm on. Pt verbalizes understanding need to call nurse to assist with ambulating. Continue to monitor.
--- NOTE | 2016-12-27 10:39 | NUR ---
CALLED UROLOGY CONSULT TO OLIVIER VERA [employer] RE: RENAL COLIC. SPOKE TO ELIA
--- NOTE | 2016-12-27 11:28 | NUR ---
Rounds/Spoke with Urologist PA: Pt sitting semi-fowlers in bed. No acute signs of distress noted at this time. IV intact to RUE with no redness or swelling noted to site. Pt denies pain. Pt c/o bloody stool --instructed pt let me know when he has another bowel movement for assessment. Spoke with urologist OLIVIER Whitlock, aware that pt is here and that pt has ureteral stent placement last week. She states she will be here later to see patient. Pending abdominal ultrasound--patient verbalizes understanding of NPO status at this time. Pt is able to make needs known. No other needs noted. Call light in reach. Continue to monitor.
[2016-12-27 12:08] VITALS: BP 146/96; PULSE 77; RESP 16; TEMP 97.8; O2SAT 100
--- NOTE | 2016-12-27 12:27 | NUR ---
Urology PA Here: Urology PA here, cleared for discharge and follow up with Dr. Mcnamara on Thursday for removal of stents.
[2016-12-27 13:44] LABS: BASOPHILS # (AUTO) 0.1 K/uL (0.0-0.2); BASOPHILS % (AUTO) 0.4 % (0.0-2.0); EOSINOPHILS # (AUTO) 0.3 K/uL (0.0-0.4); EOSINOPHILS % (AUTO) 2.1 % (0.0-4.0); HEMATOCRIT 35.3 % (36-54); HEMOGLOBIN 12.3 g/dL (14.0-18.0); LYMPHOCYTES # (AUTO) 1.8 K/uL (1.0-5.5); LYMPHOCYTES % (AUTO) 13.4 % (20.5-51.5); MEAN CORPUSCULAR HEMOGLOBIN 32 pg (27-31); MEAN CORPUSCULAR HGB CONC 35 % (32-36); MEAN CORPUSCULAR VOLUME 92 fL (79.0-98.0); MONOCYTES # (AUTO) 0.6 K/uL (0.0-1.0); MONOCYTES % (AUTO) 4.7 % (1.7-9.3); NEUTROPHILS # (AUTO) 10.6 K/uL (1.8-7.7); NEUTROPHILS % (AUTO) 79.4 % (40.0-70.0); PLATELET COUNT (AUTO) 195 K/uL (130-430); RED BLOOD CELL COUNT(AUTO) 3.85 MIL/uL (4.2-6.2); RED CELL DISTRIBUTION WIDTH 12.3 % (9.0-15.0); WHITE BLOOD COUNT (AUTO) 13.4 K/uL (4.8-10.8)
--- NOTE | 2016-12-27 13:44 | NUR ---
Dr. Morrissey Here: Dr. Morrissey here to see patient, aware that pt is having bloody stool. Dr. Morrissey is examining patient at bedside for hemorrhoids. MD cleared patient for discharge home. CBC drawn at this time. Awaiting abdominal ultrasound. Pt remains NPO. Call light in reach. Fiance at bedside. Continue to monitor pt closely.
--- NOTE | 2016-12-27 15:32 | NUR ---
Page Dr. Michael: Page Dr. Michael for d/c order. Abdominal ultrasound in progress. Pt denies pain. Continue to monitor.
--- NOTE | 2016-12-27 15:33 | NUR ---
CALLED ATTENDING , DR GUARDADO RE: DISCHARGE ORDER FOR HOME. SPOKE TO DOUG
[2016-12-27 15:35] VITALS: BP 145/86; PULSE 75; RESP 16; TEMP 99; O2SAT 93
[2016-12-27 16:02] VITALS: BP 145/86; PULSE 75; RESP 16; TEMP 98.9; O2SAT 93
[2016-12-27 16:18] LABS: CHLORIDE 104 mmol/L (98-107); CREATININE 0.97 mg/dL (0.55-1.30); GLUCOSE 94 mg/dL (70-99); POTASSIUM 4.3 mmol/L (3.5-5.1); SODIUM SERUM 137 mmol/L (136-145); UREA NITROGEN, BLOOD 16 mg/dL (8-21)
[2016-12-27 16:33] LABS: ANION GAP < 3 (5-15); GFR AFRICAN AMERICAN 106 mL/min (>90)
--- NOTE | 2016-12-27 16:40 | NUR ---
D/C Patient Patient given medication reconciliation form and D/C instructions. Exit Care provided. Patient verbalized understanding. MD discussed with patient the results and treatment provided. Ambulatory with steady gait for discharge to home. Patient in stable condition, ID band removed. IV catheter removed, intact and dressing applied, no active bleeding. No Rx given. Patient educated on pain management. All belongings sent with patient.
== END 2016-12-27 16:40 | disposition home or self-care (01) | DRG 812 ==
LOC: SED 09:37 → SMU 11:17 → STU 11:40
PROVIDERS: ADMIT Internal Medicine Hospice and Palliative Medicine; ATTEND Internal Medicine Hospice and Palliative Medicine
DX: T40.601A Poisoning by unspecified narcotics, accidental (unintentional), initial encounter (principal); G92 Toxic encephalopathy; N39.0 Urinary tract infection, site not specified; E66.9 Obesity, unspecified; R40.4 Transient alteration of awareness; F10.10 Alcohol abuse, uncomplicated; Z96.0 Presence of urogenital implants; Z87.442 Personal history of urinary calculi; Y92.89 Other specified places as the place of occurrence of the external cause; Z79.899 Other long term (current) drug therapy; Z68.32 Body mass index [BMI] 32.0-32.9, adult; E86.9 Volume depletion, unspecified
CPT/HCPCS: 36415; 76700-TC; 80048; 80053; 80307; 81000-TC; 83605; 85025; 87040-TC; 87081; 87086; 93005; 96361; 96365; 96375; 99291; G0480; G0481; G0482; J0696; J1170; J1200; J1885; J2060; J2270; J2405; J3411; J3475; J3490; J7030; J7042

== ENCOUNTER 2017-05-12 15:51 | Emergency (ER) | payer MEDICAID ==
[~2017-05-12] VITALS: Ht 177.8 cm; Wt 87.1 kg
[2017-05-12 16:10] VITALS: BP_SYST 102
== END 2017-05-12 17:00 | disposition home or self-care (01) ==
LOC: SED 15:51
DX: Z48.01 Encounter for change or removal of surgical wound dressing (principal); Z87.442 Personal history of urinary calculi; F17.210 Nicotine dependence, cigarettes, uncomplicated; Z71.6 Tobacco abuse counseling
CPT/HCPCS: 99283

== ENCOUNTER 2017-05-13 11:54 | Emergency (ER) | payer MEDICAID ==
[~2017-05-13] VITALS: Ht 177.8 cm; Wt 88.5 kg
[2017-05-13 11:54] VITALS: BP_SYST 127
[2017-05-13 12:55] VITALS: BP_SYST 118
== END 2017-05-13 12:55 | disposition home or self-care (01) ==
LOC: SED 11:54
DX: S00.83XA Contusion of other part of head, initial encounter (principal); Z87.442 Personal history of urinary calculi; Z90.89 Acquired absence of other organs; Y00.XXXA Assault by blunt object, initial encounter; Y93.89 Activity, other specified; Y92.89 Other specified places as the place of occurrence of the external cause; Y99.8 Other external cause status
CPT/HCPCS: 99281

== ENCOUNTER 2017-05-27 09:05 | Emergency (ER) | payer MEDICAID ==
[~2017-05-27] VITALS: Ht 177.8 cm; Wt 90.7 kg
[2017-05-27 09:07] VITALS: BP_SYST 152
[2017-05-27] MEDS ORDERED: IBUPROFEN 600 MG TABLET PO ONE (10:00)
[2017-05-27 11:11] VITALS: BP_SYST 148
== END 2017-05-27 11:11 | disposition home or self-care (01) ==
LOC: SED 09:05
DX: S00.83XA Contusion of other part of head, initial encounter (principal); I10 Essential (primary) hypertension; Z79.899 Other long term (current) drug therapy; Z87.442 Personal history of urinary calculi; X58.XXXA Exposure to other specified factors, initial encounter; Y93.89 Activity, other specified; Y92.89 Other specified places as the place of occurrence of the external cause; Y99.8 Other external cause status
CPT/HCPCS: 70110-TC; 70486-TC; 99284

== ENCOUNTER 2017-07-11 15:38 | Emergency (ER) | payer MEDICAID ==
[~2017-07-11] VITALS: Ht 177.8 cm; Wt 95.3 kg
[2017-07-11 15:44] VITALS: BP 137/70; PULSE 86; RESP 18; TEMP 97.8; O2SAT 95
[2017-07-11] MEDS ORDERED: METOCLOPRAMIDE HCL 10 MG/2 ML VIAL IM ONE (17:00)
[2017-07-11] MEDS ORDERED: KETOROLAC TROMETHAMINE 60 MG/2 ML VIAL IM ONE (17:00)
[2017-07-11 18:14] VITALS: BP 137/70; PULSE 86; RESP 18; TEMP 97.8; O2SAT 95
== END 2017-07-11 18:14 | disposition home or self-care (01) ==
LOC: SED 15:38
DX: G44.209 Tension-type headache, unspecified, not intractable (principal); I10 Essential (primary) hypertension
CPT/HCPCS: 70450; 96372; 99284; J1885; J2765

== ENCOUNTER 2017-11-30 00:08 | Emergency (ER) | payer MEDICAID ==
[~2017-11-30] VITALS: Ht 180.3 cm; Wt 97.5 kg
[2017-11-30 00:10] VITALS: BP_SYST 161
[2017-11-30] MEDS ORDERED: LIDOCAINE 1%, 20 ML MDV 20 ML ONE (00:25)
[2017-11-30] MEDS ORDERED: LIDOCAINE 1% 10 MG/ML, 20 ML MDV IJ ONE (00:30)
[2017-11-30] MEDS ORDERED: DIPH-TET-PERTUS Vaccine 0.5 ML VIAL (ADACEL) I.M. ONE ×2 (00:45→00:51)
[2017-11-30 01:00] VITALS: BP_SYST 146
== END 2017-11-30 01:00 | disposition home or self-care (01) ==
LOC: SED 00:08
DX: S61.212A Laceration without foreign body of right middle finger without damage to nail, initial encounter (principal); I10 Essential (primary) hypertension; Z87.442 Personal history of urinary calculi; W45.8XXA Other foreign body or object entering through skin, initial encounter; Y93.89 Activity, other specified; Y92.89 Other specified places as the place of occurrence of the external cause; Y99.8 Other external cause status
CPT/HCPCS: 12001; 90471; 90715; 99283; J2001

== ENCOUNTER 2018-04-18 01:23 | Emergency (ER) | payer MEDICAID ==
[~2018-04-18] VITALS: Ht 177.8 cm; Wt 93.0 kg
[2018-04-18 02:00] VITALS: BP_SYST 129
[2018-04-18] MEDS ORDERED: KETOROLAC TROMETHAMINE 60 MG/2 ML VIAL IM ONE (02:30)
[2018-04-18] MEDS ORDERED: SILVER SULFADIAZINE 1%, 25 GM TOPICAL CREAM (SSD) TP ONE (02:30)
[2018-04-18 02:49] VITALS: BP_SYST 129
== END 2018-04-18 02:49 | disposition home or self-care (01) ==
LOC: SED 01:23
DX: L55.0 Sunburn of first degree (principal); I10 Essential (primary) hypertension; Z87.442 Personal history of urinary calculi
CPT/HCPCS: 96372; 99283; J1885; 99281

== ENCOUNTER 2018-04-19 06:35 | Emergency (ER) | payer MEDICAID ==
[~2018-04-19] VITALS: Ht 177.8 cm; Wt 104.3 kg
[2018-04-19 06:40] VITALS: BP_SYST 148
[2018-04-19] MEDS ORDERED: ALPRAZolam 0.25 MG TABLET PO ONE (07:00)
[2018-04-19 07:26] LABS: BARBITURATE, URINE NEGATIVE (NEG <=200); CANNABINOID, URINE POSITIVE (NEG <=50); COCAINE, URINE NEGATIVE (NEG <=150); METHAMPHETAMINES SCREEN,URINE NEGATIVE (NEG <=500); OPIATE, URINE NEGATIVE (NEG <=100); PHENCYCLIDINE SCREEN,URINE NEGATIVE (NEG <=25); UR TRICYCLIC ANTIDEPRESSANTS NEGATIVE (NEG <=300); URINE METHADONE NEGATIVE (NEG <=200); URINE OXYCODONE SCREEN NEGATIVE (NEG <=100); URINE PROPOXYPHENE SCREEN NEGATIVE (NEG <=300)
[2018-04-19 07:27] LABS: BENZODIAZEPINE, URINE POSITIVE (NEG <=150); URINE AMPHETAMINE POSITIVE (NEG <=500)
[2018-04-19 07:56] VITALS: BP_SYST 138
== END 2018-04-19 07:56 ==
LOC: SED 06:35
DX: R45.851 Suicidal ideations (principal); R45.850 Homicidal ideations; F17.210 Nicotine dependence, cigarettes, uncomplicated; F31.9 Bipolar disorder, unspecified; I10 Essential (primary) hypertension
CPT/HCPCS: 80307; 99285

== ENCOUNTER 2018-04-27 19:21 | Inpatient (IN) | payer MEDICAID ==
[~2018-04-27] VITALS: Ht 180.3 cm; Wt 89.8 kg
[2018-04-27 19:26] VITALS: BP_SYST 157
[2018-04-27] MEDS ORDERED: LORazepam 2 MG/ML VIAL (FOR ER USE) ONE (19:30)
[2018-04-27] MEDS ORDERED: DIPHENHYDRAMINE INJ 50 MG/ML VIAL IM ONE (19:30)
[2018-04-27] MEDS ORDERED: DIPHENHYDRAMINE INJ 50 MG/ML VIAL ONE (19:30)
[2018-04-27] MEDS ORDERED: HALOPERIDOL LACTATE 5 MG/ML VIAL ONE (19:30)
[2018-04-27] MEDS ORDERED: LORazepam 2 MG/ML VIAL IM ONE (19:30)
[2018-04-27] MEDS ORDERED: HALOPERIDOL LACTATE 5 MG/ML VIAL IM ONE (19:30)
[2018-04-27] MEDS ORDERED: NACL 0.9% 1,000 ML IV ONE (20:04)
[2018-04-27 20:34] LABS: EOSINOPHILS % (AUTO) 0.1 % (0.0-4.0); RED CELL DISTRIBUTION WIDTH 12.1 % (9.0-15.0)
[2018-04-27 20:39] LABS: ANION GAP 14 (5-15); CALCIUM 10.3 mg/dL (8.4-11.0); CREATININE 2.77 mg/dL (0.55-1.30); GLUCOSE 123 mg/dL (70-99); POTASSIUM 3.7 mmol/L (3.5-5.1); UREA NITROGEN, BLOOD 25 mg/dL (8-21)
[2018-04-27 20:42] LABS: BASOPHILS % (AUTO) 0.1 % (0.0-2.0); HEMATOCRIT 45.8 % (36-54); HEMOGLOBIN 15.8 g/dL (14.0-18.0); MEAN CORPUSCULAR HEMOGLOBIN 32 pg (27-31); MEAN CORPUSCULAR HGB CONC 35 % (32-36); MEAN CORPUSCULAR VOLUME 92 fL (79.0-98.0); MONOCYTES % (AUTO) 6.8 % (1.7-9.3); NEUTROPHILS # (AUTO) 12.7 K/uL (1.8-7.7); PLATELET COUNT (AUTO) 300 K/uL (130-430); RED BLOOD CELL COUNT(AUTO) 5.01 MIL/uL (4.2-6.2); SODIUM SERUM 162 mmol/L (136-145); WHITE BLOOD COUNT (AUTO) 14.7 K/uL (4.8-10.8)
[2018-04-27 20:43] LABS: CHLORIDE 123 mmol/L (98-107); GFR AFRICAN AMERICAN 31 mL/min (>90)
[2018-04-27 20:46] LABS: ALANINE AMINOTRANSFERASE 36 U/L (12-78); ASPARTATE AMINOTRANSFERASE 35 U/L (10-37); TOTAL BILIRUBIN 0.6 mg/dL (0.0-1.0)
[2018-04-27 20:50] LABS: ALCOHOL, BLOOD < 3 mg/dL (<10)
[2018-04-27 20:57] LABS: BILIRUBIN,URINE NEGATIVE (NEGATIVE); BLOOD, URINE 3+ (NEGATIVE); CLARITY/URINE CLEAR (CLEAR); COLOR,URINE YELLOW (YELLOW); GLUCOSE,URINE NEGATIVE (NEGATIVE); KETONES,URINE TRACE (NEGATIVE); LEUKOCYTE ESTERASE ,URINE TRACE (NEGATIVE); NITRITE, URINE NEGATIVE (NEGATIVE); PH,URINE 5.5 (5.0-8.0); PROTEIN URINE TRACE (NEGATIVE); UROBILINOGEN,URINE 0.2 (0.2-1.0)
[2018-04-27 21:01] LABS: BACTERIA,URINE MODERATE /HPF (None Seen); HYALINE CASTS, URINE 0-10 /LPF (None Seen); RBC,URINE 20-50 /HPF (0-3)
[2018-04-27 21:06] LABS: BARBITURATE, URINE NEGATIVE (NEG <=200); BENZODIAZEPINE, URINE POSITIVE (NEG <=150); CANNABINOID, URINE POSITIVE (NEG <=50); COCAINE, URINE NEGATIVE (NEG <=150); METHAMPHETAMINES SCREEN,URINE NEGATIVE (NEG <=500); OPIATE, URINE NEGATIVE (NEG <=100); PHENCYCLIDINE SCREEN,URINE NEGATIVE (NEG <=25); URINE AMPHETAMINE POSITIVE (NEG <=500); URINE METHADONE NEGATIVE (NEG <=200); URINE OXYCODONE SCREEN POSITIVE (NEG <=100)
[2018-04-27 21:07] LABS: UR TRICYCLIC ANTIDEPRESSANTS NEGATIVE (NEG <=300); URINE PROPOXYPHENE SCREEN NEGATIVE (NEG <=300)
[2018-04-27] MEDS ORDERED: hydrALAZINE HCL 20 MG/ML VIAL IVP PRN (22:00)
[2018-04-27] MEDS ORDERED: LORazepam 2 MG/ML VIAL IVP PRN (22:00)
[2018-04-27] MEDS ORDERED: ACETAMINOPHEN 325 MG TABLET PO PRN (22:00)
[2018-04-27] MEDS ORDERED: LORazepam 2 MG/ML VIAL (FOR ER USE) IVP ONE (22:15)
[2018-04-27 23:00] VITALS: BP_SYST 128
[2018-04-27] MEDS ORDERED: DIPHENHYDRAMINE INJ 50 MG/ML VIAL IVP ONE (23:00)
[2018-04-27] MEDS ORDERED: HALOPERIDOL LACTATE 5 MG/ML VIAL IVP ONE (23:00)
[2018-04-27] MEDS: D5/0.45 NS 1,000 ML IV SCH (23:42)
[2018-04-27 23:45] VITALS: BP_SYST 128
[2018-04-28] VITALS (24 sets, daily range): BP systolic 111–145
[2018-04-28] MEDS ORDERED: PIPERACILLIN/TAZOBACTAM 3.375 GM/VIAL (ZOSYN) IV ONE (00:06)
[2018-04-28] MEDS: PIPERACILLIN/TAZO 3.375/DEX-IS 50 ML IV SCH ×5 (00:07→23:35)
[2018-04-28] MEDS ORDERED: D5/0.45 NS 1,000 ML IV SCH (03:19)
[2018-04-28] MEDS ORDERED: D5/0.45 NS 1,000 ML IV ONE (03:47)
[2018-04-28] MEDS: LORazepam 2 MG/ML VIAL IVP PRN ×6 (05:34→21:53)
[2018-04-28] MEDS: D5/0.45 NS 1,000 ML IV SCH ×4 (05:35→18:41)
[2018-04-28 05:46] LABS: BASOPHILS % (AUTO) 0.1 % (0.0-2.0); EOSINOPHILS # (AUTO) 0.1 K/uL (0.0-0.4); EOSINOPHILS % (AUTO) 0.7 % (0.0-4.0); HEMATOCRIT 42.3 % (36-54); LYMPHOCYTES # (AUTO) 0.8 K/uL (1.0-5.5); LYMPHOCYTES % (AUTO) 7.8 % (20.5-51.5); MEAN CORPUSCULAR HEMOGLOBIN 31 pg (27-31); MEAN CORPUSCULAR HGB CONC 33 % (32-36); MEAN CORPUSCULAR VOLUME 94 fL (79.0-98.0); MONOCYTES # (AUTO) 0.9 K/uL (0.0-1.0); MONOCYTES % (AUTO) 8.6 % (1.7-9.3); NEUTROPHILS # (AUTO) 8.8 K/uL (1.8-7.7); NEUTROPHILS % (AUTO) 82.8 % (40.0-70.0); PLATELET COUNT (AUTO) 252 K/uL (130-430); RED BLOOD CELL COUNT(AUTO) 4.51 MIL/uL (4.2-6.2); RED CELL DISTRIBUTION WIDTH 12.3 % (9.0-15.0); WHITE BLOOD COUNT (AUTO) 10.6 K/uL (4.8-10.8)
[2018-04-28] MEDS: PANTOPRAZOLE SODIUM 40 MG/VIAL (PROTONIX) IVP SCH (06:03)
[2018-04-28 06:30] LABS: ALBUMIN 3.9 g/dL (3.4-4.8); CALCIUM 8.7 mg/dL (8.4-11.0); CREATININE 1.86 mg/dL (0.55-1.30); PHOSPHORUS 3.5 mg/dL (2.7-4.5); POTASSIUM 3.6 mmol/L (3.5-5.1); TOTAL BILIRUBIN 0.3 mg/dL (0.0-1.0)
[2018-04-28] MEDS ORDERED: HALOPERIDOL LACTATE 5 MG/ML VIAL IVP ONE (13:45)
[2018-04-28] MEDS ORDERED: HALOPERIDOL LACTATE 5 MG/ML VIAL ONE ×2 (13:47→20:53)
[2018-04-28] MEDS ORDERED: LORazepam 2 MG/ML VIAL IVP ONE (14:15)
[2018-04-28] MEDS ORDERED: MORPHINE 2 MG/ML INJ. SYRINGE ONE (14:23)
[2018-04-28 18:21] LABS: CALCIUM 8.7 mg/dL (8.4-11.0); CREATININE 1.46 mg/dL (0.55-1.30); POTASSIUM 3.6 mmol/L (3.5-5.1)
[2018-04-28] MEDS ORDERED: HALOPERIDOL LACTATE 5 MG/ML VIAL IVP PRN ×2 (18:45)
[2018-04-28 18:50] LABS: CKMB RELATIVE INDEX 0.9 (0.0-2.9); CREATINE KINASE MB 7.5 ng/mL (0-3.6)
[2018-04-28] MEDS: MORPHINE 2 MG/ML INJ. SYRINGE IVP PRN (19:56)
[2018-04-28] MEDS ORDERED: LORazepam 2 MG/ML VIAL IM ONE (20:45)
[2018-04-28] MEDS ORDERED: DIPHENHYDRAMINE INJ 50 MG/ML VIAL ONE (20:53)
[2018-04-28] MEDS ORDERED: DIPHENHYDRAMINE INJ 50 MG/ML VIAL IM ONE (22:00)
[2018-04-28] MEDS ORDERED: HALOPERIDOL LACTATE 5 MG/ML VIAL IM ONE (22:00)
[2018-04-28] MEDS: HALOPERIDOL LACTATE 5 MG/ML VIAL IM PRN (22:13)
[2018-04-28] MEDS ORDERED: chlorproMAZINE HCL 50 MG/ 2 ML AMP ONE (22:22)
[2018-04-28] MEDS ORDERED: chlorproMAZINE HCL 50 MG/ 2 ML AMP IM ONE (22:30)
[2018-04-29] VITALS (16 sets, daily range): BP systolic 99–145
[2018-04-29] MEDS: HALOPERIDOL LACTATE 5 MG/ML VIAL IM PRN ×2 (01:46→22:04)
[2018-04-29] MEDS: LORazepam 2 MG/ML VIAL IVP PRN ×5 (02:28→21:47)
[2018-04-29] MEDS: MORPHINE 2 MG/ML INJ. SYRINGE IVP PRN (03:02)
[2018-04-29] MEDS: D5/0.45 NS 1,000 ML IV SCH (05:00)
[2018-04-29] MEDS: PANTOPRAZOLE SODIUM 40 MG/VIAL (PROTONIX) IVP SCH (05:59)
[2018-04-29] MEDS: PIPERACILLIN/TAZO 3.375/DEX-IS 50 ML IV SCH ×4 (06:00→23:48)
[2018-04-29 06:17] LABS: CALCIUM 8.6 mg/dL (8.4-11.0); CREATININE 1.27 mg/dL (0.55-1.30); POTASSIUM 3.6 mmol/L (3.5-5.1)
[2018-04-29] MEDS ORDERED: D5W 1,000 ML IV SCH (11:00)
[2018-04-29] MEDS: chlorproMAZINE HCL 50 MG/ 2 ML AMP IM PRN ×3 (15:07→23:50)
[2018-04-29] MEDS: D5W 1,000 ML IV SCH (20:18)
[2018-04-30] MEDS: LORazepam 2 MG/ML VIAL IVP PRN ×4 (01:50→20:08)
[2018-04-30] MEDS: HALOPERIDOL LACTATE 5 MG/ML VIAL IM PRN ×4 (02:55→20:49)
[2018-04-30] MEDS: D5W 1,000 ML IV SCH ×4 (03:10→23:09)
[2018-04-30] MEDS: chlorproMAZINE HCL 50 MG/ 2 ML AMP IM PRN ×2 (03:57→09:30)
[2018-04-30] MEDS ORDERED: chlorproMAZINE HCL 50 MG/ 2 ML AMP ONE (04:01)
[2018-04-30] MEDS: PIPERACILLIN/TAZO 3.375/DEX-IS 50 ML IV SCH ×4 (06:28→23:09)
[2018-04-30 07:04] LABS: CALCIUM 8.7 mg/dL (8.4-11.0); CREATININE 1.1 mg/dL (0.55-1.30); PHOSPHORUS 2.4 mg/dL (2.7-4.5)
[2018-04-30] MEDS: PANTOPRAZOLE SODIUM 40 MG/VIAL (PROTONIX) IVP SCH (07:28)
[2018-04-30 07:40] LABS: CREATINE KINASE MB 24.4 ng/mL (0-3.6)
[2018-04-30 07:50] VITALS: BP_SYST 131
[2018-04-30 10:58] VITALS: BP_SYST 135
[2018-04-30] MEDS ORDERED: K PHOS 30 MM in NS 250 ML IV ONE (11:15)
[2018-04-30 14:56] VITALS: BP_SYST 151
[2018-04-30 15:52] LABS: COLLECTION TIME,URINE 24 HR
[2018-04-30 15:53] LABS: SODIUM TIMED,URINE 93 mmol/L; SODIUM URINE, 24HR CALC 70 mmol/24H (40-220); TOTAL VOLUME 24HRS,URINE 750 mL
[2018-04-30 16:22] VITALS: BP_SYST 140
[2018-04-30 19:08] VITALS: BP_SYST 124
[2018-04-30] MEDS: QUEtiapine FUMARATE 25 MG TABLET PO SCH (20:11)
[2018-05-01 01:31] VITALS: BP_SYST 127
[2018-05-01] MEDS: PIPERACILLIN/TAZO 3.375/DEX-IS 50 ML IV SCH ×4 (06:05→23:48)
[2018-05-01] MEDS: D5W 1,000 ML IV SCH ×3 (06:06→18:45)
[2018-05-01] MEDS: PANTOPRAZOLE SODIUM 40 MG/VIAL (PROTONIX) IVP SCH (06:12)
[2018-05-01 06:49] LABS: CALCIUM 8.7 mg/dL (8.4-11.0); CREATININE 0.93 mg/dL (0.55-1.30); PHOSPHORUS 3.5 mg/dL (2.7-4.5)
[2018-05-01 07:30] VITALS: BP_SYST 138
[2018-05-01] MEDS: QUEtiapine FUMARATE 25 MG TABLET PO SCH ×2 (08:05→20:07)
[2018-05-01] MEDS: MORPHINE 2 MG/ML INJ. SYRINGE IVP PRN ×3 (08:09→20:08)
[2018-05-01] MEDS ORDERED: POTASSIUM CHLORIDE 40 MEQ in NS 250 ML IV ONE (08:30)
[2018-05-01 09:04] VITALS: BP_SYST 132
[2018-05-01 12:14] VITALS: BP_SYST 139
[2018-05-01] MEDS: HALOPERIDOL LACTATE 5 MG/ML VIAL IM PRN (12:29)
[2018-05-01 16:10] VITALS: BP_SYST 150
[2018-05-01 20:00] VITALS: BP_SYST 131
[2018-05-01] MEDS: LORazepam 2 MG/ML VIAL IVP PRN (20:07)
[2018-05-02] VITALS: BP_SYST 138
[2018-05-02] MEDS: LORazepam 2 MG/ML VIAL IVP PRN ×2 (01:04→06:26)
[2018-05-02] MEDS: MORPHINE 2 MG/ML INJ. SYRINGE IVP PRN (02:02)
[2018-05-02] MEDS: D5W 1,000 ML IV SCH (03:27)
[2018-05-02 04:00] VITALS: BP_SYST 142
[2018-05-02] MEDS: PIPERACILLIN/TAZO 3.375/DEX-IS 50 ML IV SCH ×2 (06:25→12:00)
[2018-05-02] MEDS: PANTOPRAZOLE SODIUM 40 MG/VIAL (PROTONIX) IVP SCH (06:26)
[2018-05-02 08:05] VITALS: BP_SYST 122
[2018-05-02] MEDS: QUEtiapine FUMARATE 25 MG TABLET PO SCH (09:20)
[2018-05-02 10:18] LABS: CALCIUM 8.9 mg/dL (8.4-11.0); CREATININE 1.17 mg/dL (0.55-1.30); POTASSIUM 3.7 mmol/L (3.5-5.1)
[2018-05-02 11:08] LABS: CKMB RELATIVE INDEX 0.3 (0.0-2.9); CREATINE KINASE MB 2.3 ng/mL (0-3.6)
[2018-05-02 11:53] VITALS: BP_SYST 129
[2018-05-02 12:27] VITALS: BP_SYST 122
[2018-05-02] MEDS ORDERED: QUET50TA13 PO (12:38)
== END 2018-05-02 13:04 | disposition home or self-care (01) | DRG 812 ==
LOC: SED 19:21 → SIC 21:48 → STU 04-29 19:24 → SMU 05-02 10:28
PROVIDERS: ADMIT Internal Medicine Hospice and Palliative Medicine; ATTEND Internal Medicine Hospice and Palliative Medicine
DX: T43.621A Poisoning by amphetamines, accidental (unintentional), initial encounter (principal); N17.0 Acute kidney failure with tubular necrosis; G93.41 Metabolic encephalopathy; E87.0 Hyperosmolality and hypernatremia; F43.10 Post-traumatic stress disorder, unspecified; F31.9 Bipolar disorder, unspecified; E86.0 Dehydration; F19.129 Other psychoactive substance abuse with intoxication, unspecified; E87.6 Hypokalemia; D72.829 Elevated white blood cell count, unspecified; E87.8 Other disorders of electrolyte and fluid balance, not elsewhere classified; F23 Brief psychotic disorder; F13.99 Sedative, hypnotic or anxiolytic use, unspecified with unspecified sedative, hypnotic or anxiolytic-induced disorder; I10 Essential (primary) hypertension; T40.7X1A Poisoning by cannabis (derivatives), accidental (unintentional), initial encounter; Y92.89 Other specified places as the place of occurrence of the external cause; Z87.442 Personal history of urinary calculi; Z59.0 Homelessness; Z78.1 Physical restraint status
CPT/HCPCS: 36415; 70450-TC; 71045; 80048; 80053; 80307; 81000-TC; 82550-TC; 82553-TC; 83605; 83735-TC; 84100-TC; 84300-TC; 84484; 85025; 87040-TC; 87081; 87086; 93005; 96361; 96372; 96374; 96375; 99285; C9113; G0482; J1200; J1630; J2060; J2270; J2543; J3230; J3480; J7030; J7050; J7060

== ENCOUNTER 2019-11-21 17:59 | Emergency (ER) | payer MEDICAID ==
[~2019-11-21] VITALS: Ht 177.8 cm; Wt 95.3 kg
[~2019-11-21 17:59] MED LIST changes: +QUET50TA PO
[2019-11-21 18:39] VITALS: BP_SYST 122
[2019-11-21] MEDS ORDERED: NACL 0.9% 1,000 ML IV ONE (19:30)
[2019-11-21] MEDS ORDERED: KETOROLAC TROMETHAMINE 30 MG VIAL IVP ONE (19:30)
[2019-11-21 19:55] LABS: BASOPHILS # (AUTO) 0.1 K/uL (0.0-0.2); BASOPHILS % (AUTO) 0.3 % (0.0-2.0); HEMATOCRIT 43.9 % (36-54); HEMOGLOBIN 14.5 g/dL (14.0-18.0); LYMPHOCYTES # (AUTO) 1.4 K/uL (1.0-5.5); LYMPHOCYTES % (AUTO) 7.5 % (20.5-51.5); MEAN CORPUSCULAR HEMOGLOBIN 31 pg (27-31); MEAN CORPUSCULAR HGB CONC 33 % (32-36); MEAN CORPUSCULAR VOLUME 94 fL (79.0-98.0); MONOCYTES % (AUTO) 5.6 % (1.7-9.3); NEUTROPHILS # (AUTO) 15.7 K/uL (1.8-7.7); NEUTROPHILS % (AUTO) 86.6 % (40.0-70.0); PLATELET COUNT (AUTO) 177 K/uL (130-430); RED BLOOD CELL COUNT(AUTO) 4.66 MIL/uL (4.2-6.2); RED CELL DISTRIBUTION WIDTH 12.6 % (9.0-15.0); WHITE BLOOD COUNT (AUTO) 18.1 K/uL (4.8-10.8)
[2019-11-21 20:08] LABS: CALCIUM 9.5 mg/dL (8.4-11.0); CREATININE 1.21 mg/dL (0.55-1.30); POTASSIUM 4.1 mmol/L (3.5-5.1)
[2019-11-21 20:13] LABS: ALBUMIN 3.5 g/dL (3.4-4.8); TOTAL BILIRUBIN 0.4 mg/dL (0.0-1.0)
[2019-11-21] MEDS ORDERED: ONDANSETRON HCL 4 MG/2 ML VIAL IVP ONE (20:30)
[2019-11-21] MEDS ORDERED: cefTRIAXone 1 GM in D5W 50 ML IV ONE (20:30)
[2019-11-21] MEDS ORDERED: MORPHINE 4 MG/ML INJ. SYRINGE IVP ONE (20:30)
[2019-11-21 20:36] LABS: BILIRUBIN,URINE NEGATIVE (NEGATIVE); BLOOD, URINE 2+ (NEGATIVE); CLARITY/URINE CLEAR (CLEAR); COLOR,URINE YELLOW (YELLOW); GLUCOSE,URINE NEGATIVE (NEGATIVE); KETONES,URINE 1+ (NEGATIVE); LEUKOCYTE ESTERASE ,URINE NEGATIVE (NEGATIVE); NITRITE, URINE NEGATIVE (NEGATIVE); PH,URINE 5.5 (5.0-8.0); PROTEIN URINE 1+ (NEGATIVE); UROBILINOGEN,URINE 0.2 (0.2-1.0)
[2019-11-21 20:52] LABS: WBC,URINE 0-3 /HPF (0-3)
[2019-11-21 20:53] LABS: BACTERIA,URINE FEW /HPF (None Seen)
[2019-11-21] MEDS ORDERED: cefTRIAXone 1 GM VIAL ONE (20:56)
[2019-11-21 22:00] VITALS: BP_SYST 125
== END 2019-11-21 19:15 | disposition home or self-care (01) ==
LOC: SED 17:59
DX: N23 Unspecified renal colic (principal); N30.90 Cystitis, unspecified without hematuria; I10 Essential (primary) hypertension; F17.210 Nicotine dependence, cigarettes, uncomplicated; Z87.442 Personal history of urinary calculi; Z71.6 Tobacco abuse counseling
CPT/HCPCS: 36415; 74176; 80053; 81000; 85025; 96365; 96375; 99285; J0696; J1885; J2270; J2405; J7030

== ENCOUNTER 2020-01-02 03:00 | Emergency (ER) | payer MEDICAID ==
[~2020-01-02] VITALS: Ht 177.8 cm; Wt 96.2 kg
[2020-01-02 03:05] VITALS: BP_SYST 135
[2020-01-02 04:33] LABS: CALCIUM 9.2 mg/dL (8.4-11.0); CREATININE 1.14 mg/dL (0.55-1.30); POTASSIUM 4.3 mmol/L (3.5-5.1)
[2020-01-02 04:40] VITALS: BP_SYST 120
== END 2020-01-02 04:40 | disposition home or self-care (01) ==
LOC: SED 03:00
DX: R10.31 Right lower quadrant pain (principal); R10.32 Left lower quadrant pain; R19.7 Diarrhea, unspecified; F17.210 Nicotine dependence, cigarettes, uncomplicated; I10 Essential (primary) hypertension; F43.10 Post-traumatic stress disorder, unspecified; R11.10 Vomiting, unspecified; Z87.442 Personal history of urinary calculi
CPT/HCPCS: 36415; 80048; 81002; 99283

== ENCOUNTER 2020-01-16 22:40 | Inpatient (IN) | payer MEDICAID, SELFPAY ==
[~2020-01-16] VITALS: Ht 180.3 cm; Wt 94.3 kg
[2020-01-16 22:40] VITALS: BP_SYST 161
[2020-01-16 23:00] LABS: BILIRUBIN,URINE NEGATIVE (NEGATIVE); BLOOD, URINE NEGATIVE (NEGATIVE); CLARITY/URINE CLEAR (CLEAR); COLOR,URINE YELLOW (YELLOW); GLUCOSE,URINE NEGATIVE (NEGATIVE); KETONES,URINE NEGATIVE (NEGATIVE); LEUKOCYTE ESTERASE ,URINE NEGATIVE (NEGATIVE); NITRITE, URINE NEGATIVE (NEGATIVE); PH,URINE 5.5 (5.0-8.0); PROTEIN URINE NEGATIVE (NEGATIVE); UROBILINOGEN,URINE 0.2 (0.2-1.0)
[2020-01-16 23:11] LABS: BASOPHILS # (AUTO) 0.1 K/uL (0.0-0.2); BASOPHILS % (AUTO) 0.6 % (0.0-2.0); EOSINOPHILS # (AUTO) 0.2 K/uL (0.0-0.4); EOSINOPHILS % (AUTO) 1.2 % (0.0-4.0); HEMATOCRIT 45.8 % (36-54); HEMOGLOBIN 15.2 g/dL (14.0-18.0); LYMPHOCYTES # (AUTO) 4.3 K/uL (1.0-5.5); LYMPHOCYTES % (AUTO) 28.4 % (20.5-51.5); MEAN CORPUSCULAR HEMOGLOBIN 31 pg (27-31); MEAN CORPUSCULAR HGB CONC 33 % (32-36); MEAN CORPUSCULAR VOLUME 94 fL (79.0-98.0); MONOCYTES # (AUTO) 1.3 K/uL (0.0-1.0); MONOCYTES % (AUTO) 8.4 % (1.7-9.3); NEUTROPHILS # (AUTO) 9.3 K/uL (1.8-7.7); NEUTROPHILS % (AUTO) 61.4 % (40.0-70.0); PLATELET COUNT (AUTO) 236 K/uL (130-430); WHITE BLOOD COUNT (AUTO) 15.2 K/uL (4.8-10.8)
[2020-01-16 23:15] LABS: BARBITURATE, URINE NEGATIVE (NEG <=200); BENZODIAZEPINE, URINE NEGATIVE (NEG <=150); CANNABINOID, URINE NEGATIVE (NEG <=50); COCAINE, URINE NEGATIVE (NEG <=150); METHAMPHETAMINES SCREEN,URINE NEGATIVE (NEG <=500); OPIATE, URINE NEGATIVE (NEG <=100); PHENCYCLIDINE SCREEN,URINE NEGATIVE (NEG <=25); UR TRICYCLIC ANTIDEPRESSANTS NEGATIVE (NEG <=300); URINE AMPHETAMINE POSITIVE (NEG <=500); URINE METHADONE NEGATIVE (NEG <=200); URINE OXYCODONE SCREEN POSITIVE (NEG <=100); URINE PROPOXYPHENE SCREEN NEGATIVE (NEG <=300)
[2020-01-16 23:29] LABS: ALANINE AMINOTRANSFERASE 29 U/L (12-78); ALBUMIN 4.8 g/dL (3.4-4.8); ANION GAP 14 (5-15); ASPARTATE AMINOTRANSFERASE 19 U/L (10-37); CALCIUM 10.1 mg/dL (8.4-11.0); CHLORIDE 107 mmol/L (98-107); CREATININE 2.18 mg/dL (0.55-1.30); GLUCOSE 128 mg/dL (70-99); POTASSIUM 5.3 mmol/L (3.5-5.1); SODIUM SERUM 146 mmol/L (136-145); TOTAL BILIRUBIN 0.7 mg/dL (0.0-1.0); UREA NITROGEN, BLOOD 23 mg/dL (8-21)
[2020-01-16 23:30] LABS: GFR AFRICAN AMERICAN 41 mL/min (>90)
[2020-01-16 23:31] LABS: ACETAMINOPHEN < 1 ug/mL (1-30)
[2020-01-16 23:32] LABS: ALCOHOL, BLOOD < 3 mg/dL (<10)
[2020-01-17] VITALS (7 sets, daily range): BP systolic 103–155
[2020-01-17] MEDS ORDERED: cefTRIAXone 1 GM in D5W 50 ML IV ONE ×2
[2020-01-17] MEDS ORDERED: cefTRIAXone 1 GM VIAL ONE (00:35)
[2020-01-17 00:45] LABS: INFLUENZA A&B ANTIGEN SCREEN NEGATIVE FOR A & B (NEGATIVE); RESPIRATORY SYNCYTIAL VIRUS NEGATIVE (NEGATIVE)
[2020-01-17] MEDS ORDERED: ACETAMINOPHEN 325 MG TABLET PO PRN (02:45)
[2020-01-17] MEDS ORDERED: ONDANSETRON HCL 4 MG/2 ML VIAL IVP PRN (02:45)
[2020-01-17] MEDS ORDERED: AZITHROMYCIN 500 MG in NS 250 ML IV SCH (03:00)
[2020-01-17] MEDS ORDERED: AZITHROMYCIN 500 MG/VIAL (ZITHROMAX) IV ONE (03:38)
[2020-01-17] MEDS ORDERED: LORazepam 2 MG/ML VIAL IVP ONE (03:45)
[2020-01-17] MEDS: NACL 0.9% 1,000 ML IV SCH ×3 (03:55→21:35)
[2020-01-17] MEDS ORDERED: QUEtiapine FUMARATE 100 MG TABLET PO SCH (09:00)
[2020-01-17] MEDS: QUEtiapine FUMARATE 100 MG TABLET PO SCH ×3 (09:21→21:35)
[2020-01-17] MEDS ORDERED: LORazepam 2 MG/ML VIAL IVP PRN (12:45)
[2020-01-17] MEDS ORDERED: ARIP10TA9 PO (12:53)
[2020-01-17] MEDS ORDERED: PERC10 PO (12:53)
[2020-01-17] MEDS ORDERED: PHEN-561 PO (12:53)
[2020-01-17] MEDS ORDERED: ONDA4TAB5 PO (12:53)
[2020-01-17] MEDS: metroNIDAZOLE 500 mg/NS 100 ML IV SCH (12:55)
[2020-01-17] MEDS ORDERED: LORazepam 2 MG/ML VIAL ONE (12:59)
[2020-01-17] MEDS: cefTRIAXone 1 GM IVPB PREMIX 50 ML IV SCH (21:35)
[2020-01-18 00:15] VITALS: BP_SYST 110
[2020-01-18] MEDS: metroNIDAZOLE 500 mg/NS 100 ML IV SCH ×2 (00:45→12:37)
[2020-01-18 04:05] VITALS: BP_SYST 120
[2020-01-18 07:04] LABS: ALBUMIN 3.2 g/dL (3.4-4.8); CALCIUM 8.1 mg/dL (8.4-11.0); CREATININE 0.94 mg/dL (0.55-1.30); POTASSIUM 3.7 mmol/L (3.5-5.1); TOTAL BILIRUBIN 0.7 mg/dL (0.0-1.0)
[2020-01-18 07:05] LABS: BASOPHILS # (AUTO) 0.1 K/uL (0.0-0.2); EOSINOPHILS # (AUTO) 0.2 K/uL (0.0-0.4); EOSINOPHILS % (AUTO) 3.1 % (0.0-4.0); HEMATOCRIT 39.8 % (36-54); HEMOGLOBIN 13.3 g/dL (14.0-18.0); LYMPHOCYTES # (AUTO) 2.8 K/uL (1.0-5.5); LYMPHOCYTES % (AUTO) 37.5 % (20.5-51.5); MEAN CORPUSCULAR HEMOGLOBIN 31 pg (27-31); MEAN CORPUSCULAR HGB CONC 33 % (32-36); MEAN CORPUSCULAR VOLUME 93 fL (79.0-98.0); MONOCYTES # (AUTO) 0.7 K/uL (0.0-1.0); MONOCYTES % (AUTO) 9.9 % (1.7-9.3); NEUTROPHILS # (AUTO) 3.6 K/uL (1.8-7.7); NEUTROPHILS % (AUTO) 48.5 % (40.0-70.0); PLATELET COUNT (AUTO) 172 K/uL (130-430); RED BLOOD CELL COUNT(AUTO) 4.27 MIL/uL (4.2-6.2); RED CELL DISTRIBUTION WIDTH 14.3 % (9.0-15.0)
[2020-01-18 07:13] LABS: WHITE BLOOD COUNT (AUTO) 7.4 K/uL (4.8-10.8)
[2020-01-18 08:20] VITALS: BP_SYST 142
[2020-01-18] MEDS: QUEtiapine FUMARATE 100 MG TABLET PO SCH ×3 (08:44→22:17)
[2020-01-18] MEDS: NACL 0.9% 1,000 ML IV SCH ×2 (08:45→22:16)
[2020-01-18 12:37] VITALS: BP_SYST 125
[2020-01-18 16:00] VITALS: BP_SYST 126
[2020-01-18 20:00] VITALS: BP_SYST 122
[2020-01-18] MEDS: cefTRIAXone 1 GM IVPB PREMIX 50 ML IV SCH (22:17)
[2020-01-19] VITALS: BP_SYST 128
[2020-01-19] MEDS: metroNIDAZOLE 500 mg/NS 100 ML IV SCH ×2 (01:00→13:03)
[2020-01-19] MEDS: NACL 0.9% 1,000 ML IV SCH ×2 (04:32→14:32)
[2020-01-19 08:38] VITALS: BP_SYST 134
[2020-01-19] MEDS: QUEtiapine FUMARATE 100 MG TABLET PO SCH ×2 (08:42→15:35)
[2020-01-19 12:00] VITALS: BP_SYST 112
[2020-01-19] MEDS ORDERED: AMOX-426 PO (12:42)
[2020-01-19 15:21] VITALS: BP_SYST 112
== END 2020-01-19 17:00 | disposition home or self-care (01) | DRG 720 ==
LOC: SED 22:40 → EEVIPCON 01-17 01:42 → STU 01-17 01:42
PROVIDERS: ADMIT Internal Medicine Hospice and Palliative Medicine; ATTEND Internal Medicine Hospice and Palliative Medicine
DX: A41.9 Sepsis, unspecified organism (principal); J69.0 Pneumonitis due to inhalation of food and vomit; G92 Toxic encephalopathy; T43.621A Poisoning by amphetamines, accidental (unintentional), initial encounter; F20.9 Schizophrenia, unspecified; F31.9 Bipolar disorder, unspecified; N20.0 Calculus of kidney; F43.10 Post-traumatic stress disorder, unspecified; I10 Essential (primary) hypertension; T40.2X1A Poisoning by other opioids, accidental (unintentional), initial encounter; F15.23 Other stimulant dependence with withdrawal; Z87.442 Personal history of urinary calculi; Z78.1 Physical restraint status; Y92.89 Other specified places as the place of occurrence of the external cause; Z03.818 Encounter for observation for suspected exposure to other biological agents ruled out
CPT/HCPCS: 36415; 70450-TC; 71045; 71250-TC; 80053; 80307; 81003; 82140-TC; 82962; 83605; 84484; 85025; 86710; 87040-TC; 87420; 93005; 94760; 96365; 99285; G0480; G0481; G0482; J0456; J0696; J2060; J3490; J7030; J7042; J7050